=== PATIENT | female | born 1940 | race Caucasian/White ===

== ENCOUNTER → 2017-04-22 | Outpatient (CLI) | payer MEDICARE, OTHER ==
[~2017-04-22] MED LIST: ACET-1966 PO; ASPI-1441 PO; ATEN-65 PO; ATENOLOL; CARB100T3 PO; CHOL100058 PO; CHOL200022 PO; FLAX100038 PO; HYDROCHLOROTHIAZIDE; IBUPROFEN; LOSA-38 PO; METF-410 PO; OMEG100027 PO; OMEG500C5 PO; OMEP-137 PO; TRAM-625 PO; [UNRECOGNIZED DRUG - REMARK]
--- NOTE | 2017-04-23 10:45 | RADIOLOGY IMAGING REPORT ---
FACILITY: [facility] - [place], [place] PATIENT NAME: GRAYSON DIAS : [id number] MR: [id number] V: [id number] EXAM DATE: ORDERING PHYSICIAN: SATYA BONILLA TECHNOLOGIST: Lesia Milian PROCEDURE:BILATERAL DIGITAL SCREENING MAMMOGRAM WITH CAD ASSISTED INTERPRETATION & 3D TOMOSYNTHESIS COMPARISON:Prior mammograms dated 03/21/16, 03/16/15, 03/14/14, 03/09/13, 03/03/12, 01/31/11 INDICATIONS:SCREENING FINDINGS: A small amount of fibroglandular tissue is seen throughout the breasts. The parenchymal pattern has remained stable allowing for difference in mammographic technique & patient positioning. There is no evidence of malignant appearing mass, malignant appearing calcification or other secondary sign of malignancy in either breast. DIAGNOSTIC CATEGORY 1--NEGATIVE. RECOMMENDATIONS: ROUTINE MAMMOGRAM AND CLINICAL EVALUATION. IMPRESSION: BIRADS 1: Negative. No significant abnormality is seen. Dictated by: Holly Mccormick M.D. on 04/22/2017 at 16:30 Transcribed by: MARLEEN on 04/23/2017 at 7:15 Approved by: Holly Mccormick M.D. on 04/23/2017 at 10:44 [facility]
== END ==
LOC: MAMO 01:15
PROVIDERS: ATTEND Internal Medicine
DX: Z12.31 Encounter for screening mammogram for malignant neoplasm of breast (principal)
CPT/HCPCS: 77063; 77067